=== PATIENT | male | born 1950 | race Caucasian/White ===

== ENCOUNTER → 2023-07-17 07:06 | Outpatient (REF) | payer OTHER, SELFPAY | LOC: DHCBS HW 07:06 | PROVIDERS: ATTENDING PHYSICIAN Nuclear Medicine Nuclear Cardiology; FAMILY PHYSICIAN Internal Medicine | DX: R06.02 Shortness of breath (principal); R94.31 Abnormal electrocardiogram [ECG] [EKG]; I10 Essential (primary) hypertension; Z82.49 Family history of ischemic heart disease and other diseases of the circulatory system | CPT/HCPCS: 93306 ==

== ENCOUNTER 2023-07-21 20:15 | Inpatient (IN) | payer OTHER, SELFPAY ==
[2023-07-21] VITALS (9 sets, daily range): BP systolic 133–162; BP diastolic 72–88; BMI 26.7; BMI 26.2
--- NOTE | 2023-07-21 17:40 | ED.GENMED ---
History of Present Illness
General
Chief Complaint: Breathing Problem
Source: patient
Exam Limitations: none
Time Seen by Provider: 07/21/23 17:24
Nursing documentation reviewed up to this point in time: agreed with
Travel History
Have you had any contact with someone who has COVID-19?: No
Do you have any symptoms of coronavirus? Fever > 100 degrees, chills, cough, shortness of breath, sore throat, loss of taste or smell, muscle aches, or headache?: Yes
Symptoms:: SOB
History of Present Illness
History of Present Illness:
Patient presents to ED for evaluation secondary to an abnormal stress test performed as an outpatient this morning. Patient was advised by sales recruitment specialist, Dr. DIONNE Merritt, to come to ED for an evaluation and admission for likely cardiac catheterization
tomorrow. Patient states that he has had ongoing chronic shortness of breath, which has worsened over the past 1 month, which necessitated echocardiogram last week and stress test this morning. Denies chest pain. Denies dizziness. Denies nausea
or vomiting. Patient states that his shortness of breath can be present when sitting or during ambulation. Denies recent illness. Denies recent change in medications or diet. Denies leg pain or swelling. Denies back pain. Denies recent travel
or surgery.
Past History
Past History
ED Past Medical History: COPD and HTN
ED Past Surgical History: Orthopedic and Urological (Prostatectomy)
Social History
Tobacco: Non-smoker
Alcohol: Occasional
Personal:
Living: with family
Review of Systems
Review of Systems
Allergies reviewed?: Yes
All Other Systems: ROS reviewed and negative except as documented in HPI and ROS
Constitutional: Reports no symptoms
EENT: Reports no symptoms
Respiratory: Reports trouble breathing
Cardiac: Reports no symptoms
ABD/GI: Reports no symptoms
: Reports no symptoms
Musculoskeletal: Reports edema
Skin: Reports no symptoms
Neurological: Reports no symptoms
Phy Exam
Physical Exam
Physical Exam:
Physical Exam
General: no apparent distress, not acutely ill
Neck: supple. no meningeal signs.
Heart: s1/s2 regular rate and rhythm, no murmur. equal radial pulses.
Lungs: no acute respiratory distress. clear bilaterally
Abdomen: normal bowel sounds. not tender.
Neuro: alert and oriented. no focal neurological deficits
Skin: no rash
Psychiatric: well kept. interactive and cooperative
Extremities: no edema. no calf tenderness.
Scores
Heart Failure Risk
Heart Failure Risk Score: Not Applicable
Course
Orders/Labs/Results
Orders:
Orders
07/21/23 17:17
Electrocardiogram (*1) Urgent
Reason for Study: Chest Pain
07/21/23 17:24
CR Chest Portable - 1 View Urgent
Comment:
Reason For Exam: sob
Reason Study Needs to be Portable: Patient Unstable
07/21/23 17:52
Complete Blood Count/With Diff Urgent
Comprehensive Metabolic Panel Urgent
Magnesium Urgent
NT-proBNP Urgent
Prothrombin Time Urgent
Troponin I Urgent
07/21/23 18:52
Aspirin Chewable [Low Strength Aspirin] 324 mg PO NOW STA
Nursing to Place Non Medication Order As Directed
Physician Order: PTT 6 hours after initial start of Heparin infusion
Above order entered?: Yes
07/21/23 19:00
Heparin 60323 Units/250 ml 25,000 units in 250 ml IV PER PROTOCOL
Weight to be used for heparin protocol in kilograms (kg):: 75
Protocol:: Cardiac Tx/Acute Coronary
PTT Goal Range to be used:: PTT 73 to 111 seconds
Order type:: Initial
INITIAL Infusion Dose (UNITS/KG/hr) & then follow protocol:: 12 units/kg/hr
Infusion Dose in UNITS/hr & then follow protocol (UNITS/hr):: 900
INFUSION RATE in mL/hr & then follow protocol (mL/hr):: 9
PTT less than or equal to 64 seconds:: Increase rate by 200 units/hr (+ 2 mL/hr)
PTT 64.1 to 72.9 seconds:: Increase rate by 100 units/hr (+ 1 mL/hr)
PTT 73 to 111 seconds:: Target Range. No change in rate.
PTT 111.1 to 130.9 seconds:: Decrease rate by 100 units/hr (- 1 mL/hr)
PTT 131 to 199.9 seconds:: HOLD for 1 hr. Then decrease rate by 200 units/hr (- 2 mL/hr)
PTT greater than or equal to 200 seconds:: HOLD for 2 hrs & Notify Provider. Then decrease by 200 units/hr (-
2 mL/hr)
Lab follow-up:: Each change, PTT q6h until 2 consecutive are therapeutic. Then PTT
daily.
07/21/23 19:08
PTT Urgent
Comment: Obtain baseline before beginning heparin infusion if not already collected
07/21/23 19:33
Admit/Transfer Patient As Directed
Co-Sign Provider:
Level of Care: Inpatient admission
Assign to:: IVU
Physician / Group: freddy marrufo
Diagnosis: progressive sob concern CAD
Reason for Hospitalization: progressive sob concern CAD
Expected length of stay greater than two midnights?: Yes
ELOS- Estimated Length of Stay in days: 4
I certify the patient meets the requirements for IP care: Yes
07/21/23 19:34
Code Status As Directed
Resuscitation Status: Full Code
07/21/23 22:32
Amlodipine [Norvasc] 10 mg PO HS
Famotidine [Pepcid] 20 mg PO HS
07/21/23 22:32
VTE Contraindication Routine
VTE Mechanical Device Contraindication: Medical Contraindication
Pharmocologic Contraindication: Medical Contraindication
Comment: pt on iv heparin gtt
Activity As Directed
Activity Level: As Tolerated
Vital Signs As Directed
Frequency: Per unit guidelines
Ot Eval And Treat Routine
Pt Eval And Treat Routine
Activity Level: As Tolerated
07/22/23 Breakfast
NPO
Allow oral meds: Yes
Allow clear liquids: No
NPO with Ice Chips: No
Basic Metabolic Panel IN AM
Cardiovascular Evaluation IN AM
Complete Blood Count/With Diff IN AM
07/23/23 06:00
Basic Metabolic Panel IN AM
Complete Blood Count/With Diff IN AM
07/24/23 06:00
Basic Metabolic Panel IN AM
Complete Blood Count/With Diff IN AM
Abnormal Lab Results
07/21/23
17:52
RBC 4.52 L 10^6/uL
(4.70-6.10)
MCH 33.6 H pg
(27.0-31.0)
Absolute Lymphs (auto) 1.0 L 10^3/uL
(1.2-3.4)
Lymphocytes % 18.1 L %
(20.5-51.1)
BUN 27 H mg/dl
(9-20)
Creatinine 1.4 H mg/dL
(0.7-1.3)
Glucose 101 H mg/dl
(70-99)
Magnesium 2.5 H mg/dl
(1.6-2.3)
07/21/23 17:52
07/21/23 17:52
Vital Signs
Initial and Last Documented VS:
Initial Vital Signs
Temp Pulse Resp BP Pulse Ox
97.7 F 94 18 159/88 98
07/21/23 17:14 07/21/23 17:14 07/21/23 17:14 07/21/23 17:14 07/21/23 17:14
Last Documented Vital Signs
Temp Pulse Resp BP Pulse Ox
97.7 F 71 18 159/88 98
07/21/23 22:49 07/21/23 22:53 07/21/23 22:49 07/21/23 22:53 07/21/23 23:03
MDM/Problems Addressed
MDM/Problems Addressed:
Discussed with cardiology () - requests admission on heparin protocol. Cardiac CATH tomorrow.
*EKG
Interpreted by ED Provider?: Yes
EKG Intrepretation Date: 07/21/23
Heart Rate: 80
Rate: normal
Rhythm: sinus
Diamond: left axis deviation
Interval: normal interval
QRS Pattern: normal QRS
*Critical Care Note
Total Time (30-74mins, 75-104mins- exclusive of procedures): Not Applicable
ED Attending Note
-
Portions of this chart may have been created with voice recognition software.� Occasional wrong word or��sound alike� substitutions may have occurred due to the inherent limitations of voice recognition software.
Discharge Plan
Departure
Patient Disposition: Admit
Date of Disposition: 07/21/23
Time of Disposition: 19:08
Admit to: Telemetry
Presentation/result/management discussed w/ accepting MD/DO:
Discharge Problem:
Dyspnea, Abnormal cardiovascular stress test
Interventions
Interventions:
*Risk Screen - Suicide Last Done: 07/21/23 17:14
*General Assessment Last Done: 07/21/23 17:14
*Neglect/Abuse Screening Last Done: 07/21/23 17:14
ED- Fall Risk Assessment Last Done: 07/21/23 17:41
*ED COVID-19 Vaccine History Last Done: 07/21/23 17:18
*Nursing Disposition Last Done: 07/21/23 23:01
ED- Cardiac Assessment Last Done: 07/21/23 17:41
ED- Pulmonary Assessment Last Done: 07/21/23 17:41
Discharge Date and Time
Discharge Date/Time: 07/21/23 23:02
[2023-07-21 18:13] LABS: % Basophils 0.2 % (0-2); % Eosinophils 2.5 % (0-6); % Immature Granulocytes 0.2 % (0-0.5); % Lymphocytes 18.1 % (20.5-51.1); % Monocytes 9.3 % (1.7-9.3); % Neutrophils 69.7 % (42.2-75.2); Absolute Eosinophils 0.1 10^3/uL (0-0.7); Absolute Monocytes 0.5 10^3/uL (0.1-0.6); Absolute Neutrophils 3.8 10^3/uL (1.4-6.5); Hemoglobin 15.2 g/dL (13.0-18.0); Mean Corp Hgb Conc. 36.2 g/dL (33.0-37.0); Mean Corpuscular Hgb 33.6 pg (27.0-31.0); Mean Corpuscular Volume 92.9 fL (80.0-94.0); Mean Platelet Volume 9.6 fL (7.4-10.4); Nucleated Red Blood Cells % 0 % (-); Platelet Count 246 10^3/uL (130-400); Red Blood Cell Count 4.52 10^6/uL (4.70-6.10); Red Cell Dist. Width 12.3 % (11.5-14.5); White Blood Cell Count 5.5 10^3/uL (4.8-10.8)
[2023-07-21 18:21] LABS: INR 1.11; PT 14.1 Sec (11.4-14.6)
[2023-07-21 18:24] LABS: ALT (SGPT) 23 U/L (0-50); AST (SGOT) 31 U/L (17-59); Albumin 4.4 g/dl (3.5-5.0); Alkaline Phosphatase 59 U/L (38-126); Blood Urea Nitrogen 27 mg/dl (9-20); Calcium 9.7 mg/dl (8.4-10.2); Carbon Dioxide 24 mmol/L (22-30); Chloride 103 mmol/L (98-107); Glucose 101 mg/dl (70-99); Magnesium 2.5 mg/dl (1.6-2.3); Potassium 3.7 mmol/L (3.5-5.1); Sodium 141 mmol/L (135-145); Total Bilirubin 0.7 mg/dl (0.2-1.3); Total Protein 7.4 g/dl (6.3-8.2); eGFR 52.41
[2023-07-21 18:34] LABS: NT-proBNP 449 pg/ml; Troponin I 0.031 ng/ml
[2023-07-21] MEDS: LOW STRENGTH ASPIRIN 324 MG PO (18:58)
--- NOTE | 2023-07-21 19:13 | HPS.HSE ---
Addendum entered and electronically signed by Gianluca Vital DO 07/23/23 13:29:
H&P reviewed written by in-house service FINAL CANOE INSPECTOR. Full H&P written by [facility] team in AM of 07/22/2023.
Original Note:
Family Physician
-
Family Physician: Lora Harris
Chief Complaint
-
Shortness of breath, abnormal stress test
History of Present Illness
73-year-old male sent in by his shadow graph weight operator for abnormal stress test performed as outpatient this morning. He is due to have cardiac catheterization in the a.m. He reported ongoing shortness of breath which worsened over t the past month but has
had it since February. He reports feeling dizzy when he gets up. He also states he was symptomatic when shoveling snow several weeks ago. He had outpatient echo and stress test this a.m. 07/21/2023. He denies fever, chills, headache, dizziness,
chest pain, palpitations, cough, abdominal pain, nausea, vomiting, diarrhea, urinary symptoms. He has past medical history of COPD, HTN, prostatectomy/prostate cancer, CKD stage III, OA left knee, COVID-19 infection 08/05/2020 received antibody
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
Medical History
Past Medical History
Past Medical History: Reports Other
Additional Past Medical History:
COPD
HTN
CKD stage III
prostatectomy/prostate cance
OA left knee
COVID-19 infection 08/05/2020 received antibody infusion.
Past Surgical History: Reports Other (Prostatectomy secondary to prostate cancer, left knee replacement)
Social History
Tobacco: Former Smoker (15 years 1 pack a week)
Alcohol: None
Drug: None
Personal: Single
Living: Alone
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
Family History
Family History: CAD (Father age 52 mother CAD, late 70s)
Allergies / Home Medications
Allergies reflects when Allergies were last updated in [facility].
Home Medications with original date entered in [facility]
Allergy/Medication List:
Medications on admission are unable to be verified or confirmed at this time.
Review of Systems
-
History Source: Patient
A 12 point ROS was completed and negative except as noted: Yes
Constitutional: Denies Fever or Chills
EENT: Denies Sore Throat or Runny Nose
Respiratory: Reports Trouble Breathing (GAYTAN); Denies Cough
Cardiac: Denies Chest Pain, Diaphoresis, Palpitations or Syncope
Abdomen/GI: Denies Abdominal Pain, Nausea, Vomiting, Diarrhea, Constipated, Bloody Stools or Black Stools
: Denies Dysuria, Frequency or Flank Pain
Musculoskeletal: Denies Joint Pain or Edema
Skin: Denies Itching
Neurological: Denies Dizzy, Headache or Weakness
Endocrine: Reports No Symptoms
Hematologic/Lymphatic: Reports No Symptoms
Psych: Reports Calm
Physical Exam
Vital Signs
Vital Signs
Temp Pulse Resp BP Pulse Ox
97.7 F 74 12 146/86 96
07/21/23 17:14 07/21/23 19:00 07/21/23 19:00 07/21/23 19:00 07/21/23 18:30
Physical Exam
General: No Apparent Distress, Comfortable and Conversant; No Pain, Fever or Chills
HEENT: NormoCephalic, Anicteric, Moist mucous membranes, PERRLA and No Ptosis
Respiratory: Decreased Breath Sounds and Other (Pursed lip breathing at rest)
Cardiac: S1/S2 and Regular Rhythm; No Murmur, Rub, Gallop or Peripheral Edema
Breast: Deferred by me
GI: Soft, Non Tender, Non Distended, Normal Bowel Sounds and No Hepatosplenomegaly
Genito-urinary: Deferred by me
Musculoskeletal: No Clubbing, No Cyanosis and No Edema
Skin: Warm, Dry and Rash
Neuro: AO x 3, No Motor Deficits, Nonfocal/grossly intact and No Sensory Deficits; No Slurred Speech or Facial Droop
Psych: Calm
Laboratory Results
-
07/21/23 17:52
07/21/23 17:52
Laboratory Results
PT 14.1 Sec (11.4-14.6) 07/21/23 17:52
INR 1.11 07/21/23 17:52
Total Bilirubin 0.7 mg/dl (0.2-1.3) 07/21/23 17:52
AST 31 U/L (17-59) 07/21/23 17:52
ALT 23 U/L (0-50) 07/21/23 17:52
Alkaline Phosphatase 59 U/L (38-126) 07/21/23 17:52
Troponin I 0.031 ng/ml 07/21/23 17:52
Impression/Plan
-
Impression/plan:
Admit to IVU under cardiology service Dr Cruz
# Progressive Shortness of breath with abnormal stress test concern for stable CAD
98% RA
-N.p.o. after midnight for cardiac cath in a.m.
-Consult [facility] cardiology
-IV heparin drip
-Troponin 0.031
CXR: No acute cardiopulmonary abnormality
#HTN�benign
159/88
#COPD chronic�no acute exacerbation
#CKD 3B
Creat 1.4 baseline 1.6
-Follow BMP
#OA left knee with left knee replacement
#Prostate cancer with prostatectomy
#COVID-19 infection July 2020 with antibody infusion
DVT prophylaxis
IV heparin gtt
Full code
[2023-07-21] MEDS: HEPARIN 25000 UNITS/250 ML IV (19:34)
[2023-07-21 19:36] LABS: APTT 34.1 Sec (23.4-35.0)
[2023-07-21] MEDS: PEPCID 20 MG PO (22:53)
[2023-07-21] MEDS: NORVASC 10 MG PO (22:53)
--- NOTE | 2023-07-21 23:00 | PTCARENOTE ---
received patient from the ED. AAOx3. WALES. ambulated with a standby assist, steady on his feet/independent. denies any cp. c/o shortness of breath at rest and exertion. pursed lip breathing noted. 98% on RA. lungs clear throughout. SR on tele
60s-70s. heparin gtt infusing at 9 ml/hr. reviewed plan of care with patient and verbalized understanding. NPO at midnight for a cardiac cath tomorrow. call esquivel within reach. answered all questions.
[2023-07-22] VITALS (16 sets, daily range): BP systolic 93–133; BP diastolic 49–77; BMI 25.7
[2023-07-22 02:25] LABS: % Basophils 0.2 % (0-2); % Immature Granulocytes 0.2 % (0-0.5); % Lymphocytes 28.8 % (20.5-51.1); % Monocytes 9.3 % (1.7-9.3); % Neutrophils 58.5 % (42.2-75.2); Absolute Eosinophils 0.2 10^3/uL (0-0.7); Absolute Lymphocytes 1.9 10^3/uL (1.2-3.4); Absolute Monocytes 0.6 10^3/uL (0.1-0.6); Absolute Neutrophils 3.8 10^3/uL (1.4-6.5); Hematocrit 40.7 % (39.0-52.0); Hemoglobin 14.8 g/dL (13.0-18.0); Mean Corp Hgb Conc. 36.4 g/dL (33.0-37.0); Mean Corpuscular Hgb 34.3 pg (27.0-31.0); Mean Corpuscular Volume 94.2 fL (80.0-94.0); Mean Platelet Volume 9.6 fL (7.4-10.4); Nucleated Red Blood Cells % 0 % (-); Platelet Count 225 10^3/uL (130-400); Red Blood Cell Count 4.32 10^6/uL (4.70-6.10); Red Cell Dist. Width 12.2 % (11.5-14.5); White Blood Cell Count 6.4 10^3/uL (4.8-10.8)
[2023-07-22 02:35] LABS: APTT 78.5 Sec (23.4-35.0)
[2023-07-22 02:38] LABS: Blood Urea Nitrogen 25 mg/dl (9-20); Calcium 9.4 mg/dl (8.4-10.2); Carbon Dioxide 24 mmol/L (22-30); Chloride 103 mmol/L (98-107); Estimated Creatinine Clearance 41 ml/min; Glucose 94 mg/dl (70-99); HDL Cholesterol 44 mg/dl; LDL Cholesterol, Calculated 88 mg/dl; Potassium 3.7 mmol/L (3.5-5.1); Sodium 140 mmol/L (135-145); Total Cholesterol 147 mg/dl (50-199); Triglyceride 78 mg/dl (10-149); Very Low Density Lipoprotein 15 mg/dl (0-30); eGFR 52.41
--- NOTE | 2023-07-22 08:02 | ITS.CL.CATH ---
Supervisor Plate Pasting - Catheterization
Cardiac Catheterization
Procedure Report:
LEFT HEART CATHETERIZATION
Date of Procedure: July 22, 2023
Referring: Ren Merritt
PROCEDURES:
1. Left heart catheterization, coronary angiogram.
2. Ultrasound-guided access
3. Successful percutaneous coronary artery intervention of a 99% mid LAD stenosis (ALEJANDRO I flow) with a 2.75 x 22 mm Medtronic resolute Jayson drug-eluting stent, successfully postdilated using a 2.75 x 20 mm NC trek balloon at 20 daisy with an
excellent angiographic result.
INDICATION: Mr. Gomez is a 73-year-old gentleman with past medical history of hypertension, hyperlipidemia, former tobacco abuse, quit 25 years ago, COPD, not on home oxygen, prostate cancer status post prostatectomy, now in remission, family
history of premature coronary artery disease with his dad having an SD at the age of 53, chronic kidney disease stage IIIb with baseline creatinine of 1.6 who has been having progressive dyspnea on exertion now presents after an abnormal stress test
for a left heart catheterization and coronary angiogram to rule out obstructive CAD. His echocardiogram on July 17, 2023 showed normal biventricular function with mild to moderate aortic stenosis. Initial troponin was 0.031. No rest or
exertional chest discomfort.
ACCESS: Right radial artery, 6 Filipino sheath, under ultrasound guidance.
HEMODYNAMICS : (mmHg)
AO (s/d) : 102/63
LV (s/d) : 103/6
LVEDP : 12
CORONARY FINDINGS
DOMINANCE: Right
LEFT MAIN: The left main artery is a large-caliber vessel which gives rise to the left anterior descending artery and the left circumflex artery. There is 10 to 20% ostial left main stenosis.
LEFT ANTERIOR DESCENDING: The left into descending artery is a large-caliber vessel which gives rise to 3 major diagonal branches which are small to medium in caliber as it courses through the anterior interventricular groove and wraps around the
apex. There is a calcified hazy 99% mid LAD stenosis with ALEJANDRO I flow. This lesion is thought to be the culprit for patient's presenting symptoms and abnormal stress test.
CIRCUMFLEX: The left circumflex artery is a large-caliber vessel which gives rise to 2 major obtuse marginal branches. There is minimal luminal irregularities.
RIGHT CORONARY ARTERY: The right coronary artery is a large-caliber, dominant vessel which gives rise to the right posterior descending artery and the right posterolateral system. There is a long area of tubular 40% mid RCA stenosis. There is very
faint left to right collaterals.
CORONARY INTERVENTION: We decided to proceed intervention on the flow-limiting high-grade mid LAD stenosis. The left coronary artery was selectively engaged using a 6 Filipino EBU 3.5 guide catheter. Additional heparin was given to maintain a
therapeutic ACT throughout the case. We navigated the lesion using a 190cm 0.014' BMW coronary wire which was successfully parked in the distal LAD. The lesion was predilated using a 2.0 x 15 mm trek semicompliant balloon at 14 daisy with good
expansion. The lesion was then subsequently stented using a 2.75 x 22 mm Medtronic resolute Maynard drug-eluting stent and postdilated using a 2.75 x 20 mm NC trek balloon at 20 daisy with an excellent angiographic result. 0% residual stenosis was
noted. ALEJANDRO-3 flow into the apical LAD was restored. Patient tolerated the procedure well with no acute complications. He was loaded with 600 mg of Plavix at the end of the case.
SEDATION: 72 minutes of procedural sedation was utilized. An independent biomedical specialist was present to assist with and help manage the patient's level of consciousness and physiologic status.
RADIATION SUMMARY: Fluoro Time (min): 9.1, Dose (mGy): 853.6, DAP (Gy.cm2) : 69.1
Closure Device: Vascular band over right radial artery, 12 cc of air.
CONCLUSIONS
1. Successful percutaneous coronary artery intervention of a 99% mid LAD stenosis (ALEJANDRO I flow) with a 2.75 x 22 mm Medtronic resolute Jayson drug-eluting stent, successfully postdilated using a 2.75 x 20 mm NC trek balloon at 20 daisy with an
excellent angiographic result.
2. Non-obstructive coronary artery disease otherwise.
3. Normal LVEDP
RECOMMENDATIONS
1. Uninterrupted dual antiplatelet therapy with daily baby aspirin and Plavix 75 mg along with high intensity statin and beta-esme.
2. Aggressive management of his cardiovascular risk factors.
3. Wean radial band per protocol.
4. Referral for outpatient cardiac rehab.
Copy to: Hero Galvez, Ren Merritt
Rika Samuel MD, FACC, [facility]
--- NOTE | 2023-07-22 08:29 | CON.CAR ---
Addendum entered and electronically signed by Rika Samuel MD 07/22/23 09:20:
I saw and examined the patient.
The Director Of Hotel's note was reviewed and I agree with the note.
Comment: Mr. Gomez is a 73-year-old gentleman with past medical history of hypertension, hyperlipidemia, former tobacco abuse, quit 25 years ago, COPD, not on home oxygen, prostate cancer status post prostatectomy, now in remission, family
history of premature coronary artery disease with his dad having an LA at the age of 53, chronic kidney disease stage IIIb with baseline creatinine of 1.6 who has been having progressive dyspnea on exertion now presents after an abnormal stress test
for a left heart catheterization and coronary angiogram to rule out obstructive CAD. His echocardiogram on July 17, 2023 showed normal biventricular function with mild to moderate aortic stenosis. Initial troponin was 0.031.
Exam is notable for a gentleman in no acute distress, awake, alert and oriented x 3, regular rate, normal S1 and S2, mid peaking systolic ejection murmur at the right upper sternal border, lungs are clear to auscultation, abdomen is soft, nontender,
nondistended with active bowel sounds, warm extremities without significant edema.
Lab work reviewed as noted. Vital signs reviewed.
Recommendations
1. Treating for presumed unstable angina with IV heparin, aspirin, and high intensity statin and beta-esme.. Will trend troponins.
2. Detailed informed consent completed with plan for heart catheterization later today to rule out obstructive CAD.
3. Recent echocardiogram showing normal biventricular function with mild to moderate aortic stenosis.
4. Further recommendations based on results from the heart catheterization.
Rika Samuel MD, [facility], [facility]
2.
Original Note:
Consultation
Consultation Request
Date/Time Consultation Requested: 07/21/2023
Date/Time Consultation Performed: 07/22/2023
Performing Provider: Perla Young PA-C for Dr. Samuel
Reason for Consultation: shortness of breath, abnormal stress test
Medical History
-
History of Present Illness:
This serves as Admission History and physical
Patient is a 73-year-old male with past medical history significant for hypertension, hyperlipidemia, CKD, prostate cancer status post prostatectomy and family history of premature coronary artery disease who was seen in the outpatient cardiology
office in mid June 2023 with complaints of progressively worsening dyspnea on exertion. Patient complained of dyspnea with moderate activity including shoveling snow which required him to stop several times during most recent storm. Over the
last several weeks he has been unable to walk up 5 or 6 steps in his house without having shortness of breath at the top. He denies chest pain. He was seen by Dr. Barba on 07/01/2023 and referred for an echocardiogram and stress test. He
underwent echocardiogram on 07/17/2023 which demonstrated ejection fraction of 55 to 60% with mild to moderate aortic regurgitation. He had a Lexiscan nuclear stress test on 07/21/2023 which was abnormal with concern for ischemia in anterior region
suggestive of LAD disease. He was referred to the emergency department given his symptoms and these findings. In emergency department EKG showed sinus rhythm with anterior T wave abnormality and anterior infarct age indeterminate. Troponin 0.031.
Chest x-ray with no acute abnormality. Provided aspirin 325 mg and placed on heparin gtt.
At the time of this evaluation patient denies chest pain or shortness of breath at rest. He denies palpitations, dizziness, lightheadedness, syncope, edema, orthopnea or PND.
Past medical history:
Hypertension
Hyperlipidemia
Chronic kidney disease
Family history of premature coronary artery disease
Benign positional vertigo
Prostate cancer status post prostatectomy 2002
Total left knee replacement 2019
Past Medical History
Past Medical History: Other (see HPI)
Past Surgical History: Orthopedic (Total left knee replacement 2019 ) and Urological (prostatectomy 2002)
Social History
Tobacco: Former Smoker (Quit around 1998)
Alcohol: Occasional (1 cocktail daily)
Drug: None
Personal: Single ( but has girlfriend)
Living: Other (Lives with girlfriend)
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
Family History
Family History: Early CAD (Father had LA at 54), CAD (Mother CAD in 70s) and Hypertension
Allergies / Home Medications
Allergy/AdvReac Type Severity Reaction Status Date / Time
No Known Allergies Allergy Verified 07/21/23 17:14
Medication Instructions Recorded Confirmed Type
ascorbic acid (vitamin C) 1,000 mg 1,000 mg PO DAILY Supplement 11/15/19 07/21/23 History
tablet (Vitamin C)
Allergy Relief 25 mg PO HS 07/21/23 07/21/23 History
acetaminophen 500 mg tablet 1,000 mg PO DAILYPRN PRN mild pain 07/21/23 07/21/23 History
(Tylenol Extra Strength)
aspirin 81 mg tablet,delayed 81 mg PO HS 07/21/23 07/21/23 History
release
fluticasone propionate 50 2 spray intranasal DAILY PRN sob 07/21/23 07/21/23 History
mcg/actuation nasal
spray,suspension
hydralazine 25 mg tablet 25 mg PO BID 07/21/23 07/21/23 History
hydrochlorothiazide 25 mg tablet 25 mg PO DAILY 07/21/23 07/21/23 History
snluemiibmgi-agflqrcf-pqooly tablet 1 tab PO DAILY 07/21/23 07/21/23 History
triamcinolone acetonide 0.1 % 1 applic topical DAILY PRN eczema 07/21/23 07/21/23 History
topical cream
turmeric root extract 500 mg 500 mg PO DAILY 07/21/23 07/21/23 History
capsule
Review of Systems
-
History Source: Patient
All other systems: Negative unless noted
Physical Exam
Vital Signs
Temp Pulse Resp BP Pulse Ox
97.4 F 105 16 131/75 97
07/22/23 07:57 07/22/23 07:52 07/22/23 07:57 07/22/23 07:30 07/22/23 08:00
GEN: No distress, awake, Ox3
HEENT: supple, anicteric, mmm
LUNGS: CTA, no wheezes/rales
CV: Reg, S1/S2, no murmur, rub or gallop
ABD: soft, BS+, NT/ND
EXT: No edema, clubbing or cyanosis
NEURO: Gross non-focal
SKIN: No rash, warm, dry, pink
Lab Results
07/22/23 01:44
07/22/23 01:44
Troponin I 0.031 ng/ml 07/21/23 17:52
Tub-P-Lxzkfrhmyid Pept 449 pg/ml 07/21/23 17:52
Impression / Plan
-
PCP: Lora Harris
Weight Clerk Dr. Hero Galvez
Impression:
Presented 07/21/2023 with progressively worsening dyspnea on exertion
Abnormal outpatient stress test suggestive of ischemia
Hypertension
Hyperlipidemia
Chronic kidney disease 3A
Family history of premature coronary artery disease
Benign positional vertigo
Prostate cancer status post prostatectomy 2002
Total left knee replacement 2019
Echocardiogram 07/17/2023: EF 55 to 60%, mild to moderate AI.
Lexiscan nuclear stress test 07/21/2023: Preliminary report suggests anterior, anterior lateral ischemia suggestive of LAD disease. Official report pending
Cardiac catheterization 07/22/2023: Pending
Plan:
Patient is a 73-year-old male with past medical history significant for hypertension, hyperlipidemia, CKD, prostate cancer status post prostatectomy and family history of premature coronary artery disease who was seen in the outpatient cardiology
office in mid June 2023 with complaints of progressively worsening dyspnea on exertion. Patient complained of dyspnea with moderate activity including shoveling snow which required him to stop several times during most recent storm. Over the
last several weeks he has been unable to walk up 5 or 6 steps in his house without having shortness of breath at the top. He denies chest pain. He was seen by Dr. Galvez on 07/01/2023 and referred for an echocardiogram and stress test. He underwent
echocardiogram on 07/17/2023 which demonstrated ejection fraction of 55 to 60% with mild to moderate aortic regurgitation. He had a Lexiscan nuclear stress test on 07/21/2023 which was abnormal with concern for ischemia in anterior region suggestive of
LAD disease. He was referred to the emergency department given his symptoms and these findings. In emergency department EKG showed sinus rhythm with anterior T wave abnormality and anterior infarct age indeterminate. Troponin 0.031. Chest x-ray
with no acute abnormality. Provided aspirin 325 mg in ED and placed on heparin gtt.
At the time of this evaluation patient denies chest pain or shortness of breath at rest. He denies palpitations, dizziness, lightheadedness, syncope, edema, orthopnea or PND.
-Presented 07/21/2023 with progressively worsening dyspnea on exertion and underwent outpatient Echocardiogram 07/17/23 which showed preserved ejection fraction with mild to moderate AI. Preliminary results of Lexiscan nuclear stress test performed
07/21/2023 suggest LAD ischemia.
-Initial troponin 0.031, repeat pending
-Will proceed with cardiac catheterization 07/22/2023. Continue heparin drip.
-Keep n.p.o.
-Aspirin 325 mg given in emergency department. Continue 81 mg daily.
-Will add Toprol 25 mg.
-History of hypertension on hydrochlorothiazide 25 mg and hydralazine 25 mg p.o. twice daily as outpatient. Started on Norvasc in ED and holding HCTZ given CKD.
-Hyperlipidemia not on statin therapy prior to admission. Pre-statin lipids 07/22/2022 TC 147, HDL 44, LDL 88, triglycerides 78. Will add atorvastatin 40 mg daily.
-Hemoglobin A1c 06/18/2023 5.4%.
-CKD 3A, baseline creat 1.4-1.6.
Plan was discussed in detail with patient, Dr. Samuel, nursing.
Data Reviewed
-
EKG: Report Reviewed by me, Discussed with Physician, Discussed with Nurse and Discussed with Patient
Radiology: Report Reviewed by me, Discussed with Physician, Discussed with Nurse and Discussed with Patient
Medical Tests (Nuc Med, Echo etc): Report Reviewed by me, Discussed with Physician, Discussed with Nurse and Discussed with Patient
Labs: Labs Reviewed by me, Discussed with Physician, Discussed with Nurse and Discussed with Patient
[2023-07-22] MEDS: TOPROL XL 25 MG PO (08:48)
[2023-07-22] MEDS: LOW STRENGTH ASPIRIN 81 MG PO (08:49)
[2023-07-22 08:52] LABS: APTT 79.6 Sec (23.4-35.0)
[2023-07-22 09:29] LABS: Troponin I 0.014 ng/ml
[2023-07-22 10:08] LABS: ACT-LR - POC 231 Seconds (116-155)
--- NOTE | 2023-07-22 10:11 | CM ---
spoke to pt/s.o. in room, pt is prev indep, lives with his S.O. in a split level home with 6 steps to enter. he denies any dme's or dc planning needs. plan is for dc to home when medically stable.
[2023-07-22 10:18] LABS: ACT-LR - POC 322 Seconds (116-155)
[2023-07-22 10:39] LABS: ACT-LR - POC 287 Seconds (116-155)
[2023-07-22] MEDS: NSS 1000 IV (11:11)
[2023-07-22] MEDS: LIPITOR 40 MG PO (17:18)
--- NOTE | 2023-07-22 19:07 | PTCARENOTE ---
Pt received post cath at 1100. Right rad site WNL. TR band removed by 1430. Pt ambulating ad mely in the room and hallway. Denies any chest pain or sob at rest. Mild dyspnea with exertion.
--- NOTE | 2023-07-22 20:46 | PTCARENOTE ---
assumed care of patient at the change of shift. AAOx3. ambulating in the room independently. patient states breathing is much improved. mild dyspnea on exertion. SR 60s. bp stable. R radial site, CDI, + pulses. reviewed plan of care with the patient
and verbalized understanding. patient eager to go home. call esquivel within reach.
[2023-07-22] MEDS: NORVASC PO (22:19)
[2023-07-22] MEDS: PEPCID 20 MG PO (22:20)
[2023-07-23 02:43] VITALS: BP 133/77
[2023-07-23 03:11] LABS: % Basophils 0.3 % (0-2); % Immature Granulocytes 0.3 % (0-0.5); % Lymphocytes 20.2 % (20.5-51.1); % Monocytes 9.2 % (1.7-9.3); Absolute Eosinophils 0.2 10^3/uL (0-0.7); Absolute Lymphocytes 1.2 10^3/uL (1.2-3.4); Absolute Monocytes 0.6 10^3/uL (0.1-0.6); Hematocrit 38.7 % (39.0-52.0); Hemoglobin 14.2 g/dL (13.0-18.0); Mean Corp Hgb Conc. 36.7 g/dL (33.0-37.0); Mean Corpuscular Hgb 33.7 pg (27.0-31.0); Mean Corpuscular Volume 91.9 fL (80.0-94.0); Mean Platelet Volume 9.3 fL (7.4-10.4); Nucleated Red Blood Cells % 0 % (-); Platelet Count 210 10^3/uL (130-400); Red Blood Cell Count 4.21 10^6/uL (4.70-6.10); Red Cell Dist. Width 12.5 % (11.5-14.5)
[2023-07-23 03:35] LABS: Blood Urea Nitrogen 22 mg/dl (9-20); Calcium 9.2 mg/dl (8.4-10.2); Carbon Dioxide 23 mmol/L (22-30); Chloride 106 mmol/L (98-107); Estimated Creatinine Clearance 38 ml/min; Glucose 90 mg/dl (70-99); Sodium 138 mmol/L (135-145); eGFR 48.25
[2023-07-23 07:03] VITALS: BP 130/75
--- NOTE | 2023-07-23 07:46 | W.PN.CARDCBS ---
Addendum entered and electronically signed by Rika Samuel MD 07/23/23 17:10:
I saw and examined the patient.
The Recycling Specialist's note was reviewed and I agree with the note.
Comment: Overall patient is doing well. He underwent LAD PCI yesterday and reports that his dyspnea on exertion as he walked the halls has been better today. No issues at the right radial access site.
Vital signs and lab work reviewed. Hemodynamically stable. No significant events on telemetry. Exam is unchanged from before. Radial site appears dressed with dressing that is clean, dry and intact. 1+ radial pulse without bruit or evidence of
hematoma.
Recommendations:
1. Continue dual antiplatelet therapy with daily baby aspirin and Plavix, high intensity statin along with beta-esme. He will now be on Norvasc. We will hold his home hydralazine and hydrochlorothiazide.
2. Outpatient BMP given elevated creatinine while in the hospital this admission with referral for outpatient nephrology if persist to be elevated.
3. Given his history of COPD with long expiratory phase of breathing on exam, I recommended that he speak to his primary care physician for a referral for pulmonary medicine for consideration of repeat pulmonary function test.
4. Stable for discharge from a cardiac standpoint. Outpatient cardiac rehab referral has been sent.
5. Follow-up with outpatient cardiology.
Rika Samuel MD, [facility], [facility]
Addendum entered and electronically signed by Perla Young PA-C 07/23/23 12:27:
dictated d/c summary #[id number]
Original Note:
Today's Communication / Plan
-
s/p LAD PRINCESS 07/23/2023
DAPT ASA and Plavix
New to Atorvastatin, Toprol and Norvasc
Stop Hydralazine and HCTZ
BMP 10-14 days
Stable for d/c
Impression / Plan
-
PCP: Lora Harris
Hypoid Gear Generator Dr. Hero Galvez
Impression:
Presented 07/21/2023 with progressively worsening dyspnea on exertion
Abnormal outpatient stress test suggestive of ischemia
CAD
s/p 2.75 x 22 mm Medtronic resolute [place] drug-eluting stent with residual 40% mid RCA s
Hypertension
Hyperlipidemia
Chronic kidney disease 3A
Family history of premature coronary artery disease
Benign positional vertigo
Prostate cancer status post prostatectomy 2002
Total left knee replacement 2019
Echocardiogram 07/17/2023: EF 55 to 60%, mild to moderate AI.
Lexiscan nuclear stress test 07/21/2023: Preliminary report suggests anterior, anterior lateral ischemia suggestive of LAD disease. Official report pending
Cardiac catheterization 07/22/2023: LM:10-20% ost. LAD:99% mid LAD stenosis (pre-intervention ALEJANDRO I flow), s/p 2.75 x 22 mm Medtronic resolute [place] PRINCESS. LCX:LI. RCA:long mid tubular 40% stenosis w/ faint left to right collaterals
Plan:
-Presented 07/21/2023 with progressively worsening dyspnea on exertion. Underwent outpatient Echocardiogram 07/17/23 which showed preserved ejection fraction with mild to moderate AI. Preliminary results of Lexiscan nuclear stress test performed
07/21/2023 suggest LAD ischemia.
-Initial troponin 0.031, repeat 0.014
-Cardiac catheterization 07/22/2023 demonstrated 99% mid LAD stenosis (pre-intervention ALEJANDRO I flow), status post with a 2.75 x 22 mm Medtronic resolute [place] drug-eluting stent with residual 40% mid RCA stenosis with we will treat med medical therapy
-DAPT w/ ASA 81 mg daily and Plavix 75 mg daily for at least 6 months.
-New to Toprol 25 mg.
-History of hypertension on hydrochlorothiazide 25 mg and hydralazine 25 mg p.o. twice daily as outpatient prior to admission. Creat running 1.4-1.5. Will stop HCTZ given CKD. Started on Norvasc in ED in place of Hydralazine. Will continue Norvasc,
Toprol. Consider low dose ERROL-I if creat stable as outpt.
-CKD 3A, baseline creat 1.4-1.6. Check BMP in 10-14 days prior to outpt follow up off HCTZ.
-Hyperlipidemia not on statin therapy prior to admission. Pre-statin lipids 07/22/2022 TC 147, HDL 44, LDL 88, triglycerides 78. New to Atorvastatin 40 mg daily.
-Hemoglobin A1c 06/18/2023 5.4%.
-Seen by cardiac rehab
Stable for d/c from cardiology standpoint
Admit HPI:
Patient is a 73-year-old male with past medical history significant for hypertension, hyperlipidemia, CKD, prostate cancer status post prostatectomy and family history of premature coronary artery disease who was seen in the outpatient cardiology
office in mid June 2023 with complaints of progressively worsening dyspnea on exertion. Patient complained of dyspnea with moderate activity including shoveling snow which required him to stop several times during most recent storm. Over the
last several weeks he has been unable to walk up 5 or 6 steps in his house without having shortness of breath at the top. He denies chest pain. He was seen by Dr. Galvez on 07/01/2023 and referred for an echocardiogram and stress test. He underwent
echocardiogram on 07/17/2023 which demonstrated ejection fraction of 55 to 60% with mild to moderate aortic regurgitation. He had a Lexiscan nuclear stress test on 07/21/2023 which was abnormal with concern for ischemia in anterior region suggestive of
LAD disease. He was referred to the emergency department given his symptoms and these findings. In emergency department EKG showed sinus rhythm with anterior T wave abnormality and anterior infarct age indeterminate. Troponin 0.031. Chest x-ray
with no acute abnormality. Provided aspirin 325 mg in ED and placed on heparin gtt.
At the time of this evaluation patient denies chest pain or shortness of breath at rest. He denies palpitations, dizziness, lightheadedness, syncope, edema, orthopnea or PND.
Progress Note - Hypoid Gear Generator
Subjective
Date of Service: July 23, 2023
Patient seen and examined. Patient reports he is feeling well. He has been able to ambulate around the unit with improvement of shortness of breath. Denies chest pain. Eager to go home.
Objective
Labs:
07/23/23 02:48
07/23/23 02:48
Labs
Hgb 14.2 g/dL (13.0-18.0) 07/23/23 02:48
Hct 38.7 % (39.0-52.0) L 07/23/23 02:48
Plt Count 210 10^3/uL (130-400) 07/23/23 02:48
PT 14.1 Sec (11.4-14.6) 07/21/23 17:52
INR 1.11 07/21/23 17:52
APTT 79.6 Sec (23.4-35.0) H 07/22/23 08:22
Sodium 138 mmol/L (135-145) 07/23/23 02:48
Potassium 4.0 mmol/L (3.5-5.1) 07/23/23 02:48
BUN 22 mg/dl (9-20) H 07/23/23 02:48
Creatinine 1.5 mg/dL (0.7-1.3) H 07/23/23 02:48
Glucose 90 mg/dl (70-99) 07/23/23 02:48
Troponins
07/21/23 07/22/23
17:52 08:54
Troponin I 0.031 0.014
Vital Signs and I&O:
Vital Signs
Temp Pulse Resp BP Pulse Ox
97.7 F 70 20 133/77 98
07/23/23 07:01 07/23/23 02:45 07/23/23 07:01 07/23/23 02:43 07/23/23 07:01
Vital Signs
Temp Pulse Resp BP Pulse Ox
97.7 F 70 20 133/77 98
07/23/23 07:01 07/23/23 02:45 07/23/23 07:01 07/23/23 02:43 07/23/23 07:01
Intake & Output
07/21/23 07/22/23 07/23/23 07/24/23
06:59 06:59 06:59 06:59
Intake Total 250 / 250
Balance 250 / 250
Physical Exam
Physical Exam
GEN: No distress, awake, Ox3
HEENT: supple, anicteric, mmm
LUNGS: CTA, no wheezes/rales
CV: Reg, S1/S2, no murmur, rub or gallop
ABD: soft, BS+, NT/ND
EXT: No edema, clubbing or cyanosis; right radial access site C/D/I with minimal ecchymosis
NEURO: Gross non-focal
SKIN: No rash, warm, dry, pink
[2023-07-23] MEDS: TOPROL XL 25 MG PO (08:06)
[2023-07-23] MEDS: LOW STRENGTH ASPIRIN 81 MG PO (08:06)
[2023-07-23] MEDS: PLAVIX 75 MG PO (08:07)
--- NOTE | 2023-07-23 09:59 | PTOTSP ---
Chart reviewed, spoke with nurse. Therapist spoke with the patient, who noted he has been ambulating in the hallway independently and denies issues with balance/mobility. RN confirms the patient has been independent. Patient offered no concerns
regarding mobility upon return home and is agreeable to PT signing off while hospitalized. Please reconsult if needs arise.
--- NOTE | 2023-07-23 10:25 | W.DS.TRANS ---
DC Summary - Trolley Worker
-
Discharge Instructions:
Discharge Diagnosis/Procedures Angioplasty with stent to Left Anterior
Descending artery
Diet Low Cholesterol
Driving Restrictions No driving for 24 hours
Blood Work Basic metabolic panel 10-14 days, prior to
office visit 08/12/2023
Other Services Cardiac Rehab
Stop these medications: Stop Hydralazine and Hydrochlorothiazide
Instructions: Cardiac Catheterization (DC)
Coronary Stenting (DC)
Stand-Alone Forms: DC Instructions- Cath/EP Lab
Changes to Home Medications: Yes
Discharge Medications:
DC Medications w/original date entered in [employer]
ascorbic acid (vitamin C) 1,000 mg tablet (Vitamin C) 1,000 mg PO DAILY Supplement 11/15/19
Allergy Relief 25 mg PO HS 07/21/23
acetaminophen 500 mg tablet (Tylenol Extra Strength) 1,000 mg PO DAILYPRN PRN mild pain 07/21/23
fluticasone propionate 50 mcg/actuation nasal spray,suspension 2 spray intranasal DAILY PRN sob 07/21/23
lqdcojsvjegt-uaghzfnk-uxpxkv tablet 1 tab PO DAILY 07/21/23
triamcinolone acetonide 0.1 % topical cream 1 applic topical DAILY PRN eczema 07/21/23
turmeric root extract 500 mg capsule 500 mg PO DAILY 07/21/23
amlodipine 2.5 mg tablet 2.5 mg PO DAILY Blood pressure #90 tabs 07/23/23
aspirin 81 mg tablet,delayed release 81 mg PO HS Blood clot prevention/tx #0 tabs 07/23/23
atorvastatin 40 mg tablet 40 mg PO QPM #90 tabs 07/23/23
clopidogrel 75 mg tablet 75 mg PO DAILY #90 tabs 07/23/23
metoprolol succinate 25 mg tablet,extended release 24 hr 25 mg PO DAILY #90 tabs 07/23/23
Home Medication Changes
New to Atorvastatin, Toprol and Norvasc
Stop Hydralazine and HCTZ
Pending Results: No
Total time spent discharging patient (in min): 36
--- NOTE | 2023-07-23 10:41 | CM ---
CM following for DC planning needs.
Pt. for DC today, order noted.
Plan is for home, no needs.
--- NOTE | 2023-07-23 11:25 | PTCARENOTE ---
D/C instructions given to patient and significant other, both verbalizes understanding. INT D/C'd, telemetry D/C'd, personal belongings packed and sent home with patient. D/C to home via wc accompanied by vol. services.
== END 2023-07-23 11:30 | disposition home or self-care (01) | DRG 322 ==
LOC: IVU 20:15
PROVIDERS: Clinical Nurse Specialist Family Health; Emergency Medicine; Physician Assistant Medical; ADMITTING PHYSICIAN Internal Medicine Cardiovascular Disease; EMERGENCY PHYSICIAN Emergency Medicine; FAMILY PHYSICIAN Internal Medicine; OTHER PHYSICIAN Internal Medicine Interventional Cardiology
PROC: 4A023N7 Measurement of Cardiac Sampling and Pressure, Left Heart, Percutaneous Approach (ICD-10-PCS; 2023-07-22)
PROC: B2111ZZ Fluoroscopy of Multiple Coronary Arteries using Low Osmolar Contrast (ICD-10-PCS; 2023-07-22)
PROC: 027034Z Dilation of Coronary Artery, One Artery with Drug-eluting Intraluminal Device, Percutaneous Approach (ICD-10-PCS; 2023-07-22)
DX: I25.10 Atherosclerotic heart disease of native coronary artery without angina pectoris (principal); I12.9 Hypertensive chronic kidney disease with stage 1 through stage 4 chronic kidney disease, or unspecified chronic kidney disease; J44.9 Chronic obstructive pulmonary disease, unspecified; M17.12 Unilateral primary osteoarthritis, left knee; E78.5 Hyperlipidemia, unspecified; H81.10 Benign paroxysmal vertigo, unspecified ear; N18.31 Chronic kidney disease, stage 3a; Z87.891 Personal history of nicotine dependence; Z86.16 Personal history of COVID-19; Z96.652 Presence of left artificial knee joint; Z90.79 Acquired absence of other genital organ(s); Z85.46 Personal history of malignant neoplasm of prostate; Z82.49 Family history of ischemic heart disease and other diseases of the circulatory system
CPT/HCPCS: 71045; 76937; 78452; 80048; 80053; 80061; 83735; 83880; 84484; 85025; 85347; 85610; 85730; 93005; 93017; 93458; 99152; 99153; 99285; A9500; C1725; C1769; C1874; C1894; C9600; J2785; Q9967

== ENCOUNTER → 2023-07-25 08:21 | Outpatient (REF) | payer OTHER, SELFPAY ==
[2023-07-25 10:59] LABS: Blood Urea Nitrogen 25 mg/dl (9-20); Carbon Dioxide 23 mmol/L (22-30); Chloride 109 mmol/L (98-107); Glucose 115 mg/dl (70-99); Potassium 4.1 mmol/L (3.5-5.1); Sodium 140 mmol/L (135-145); eGFR 41.52
== END ==
LOC: HWLAB 08:21
PROVIDERS: ATTENDING PHYSICIAN Nuclear Medicine Nuclear Cardiology; FAMILY PHYSICIAN Internal Medicine
DX: N18.31 Chronic kidney disease, stage 3a (principal)
CPT/HCPCS: 36415; 80048

== ENCOUNTER 2023-08-13 08:16 | Outpatient (RCR) | payer OTHER, SELFPAY | END 2023-08-13 23:59 | disposition home or self-care (01) | LOC: CRHB 08:16 | PROVIDERS: ATTENDING PHYSICIAN Internal Medicine Interventional Cardiology | DX: I25.10 Atherosclerotic heart disease of native coronary artery without angina pectoris (principal); Z95.5 Presence of coronary angioplasty implant and graft | CPT/HCPCS: G0422; G0423 ==

== ENCOUNTER 2023-09-10 08:23 | Outpatient (RCR) | payer OTHER, SELFPAY | END 2023-09-10 23:59 | disposition home or self-care (01) | LOC: CRHB 08:23 | PROVIDERS: ATTENDING PHYSICIAN Nuclear Medicine Nuclear Cardiology; FAMILY PHYSICIAN Internal Medicine | DX: Z95.5 Presence of coronary angioplasty implant and graft (principal) | CPT/HCPCS: G0422; G0423 ==

== ENCOUNTER 2023-10-13 08:22 | Outpatient (RCR) | payer OTHER, SELFPAY | END 2023-10-13 23:59 | disposition home or self-care (01) | LOC: CRHB 08:22 | PROVIDERS: ATTENDING PHYSICIAN Nuclear Medicine Nuclear Cardiology; FAMILY PHYSICIAN Internal Medicine | DX: I25.10 Atherosclerotic heart disease of native coronary artery without angina pectoris (principal); Z95.5 Presence of coronary angioplasty implant and graft | CPT/HCPCS: G0422; G0423 ==

== ENCOUNTER 2023-11-12 08:23 | Outpatient (RCR) | payer OTHER, SELFPAY | END 2023-11-12 23:59 | disposition home or self-care (01) | LOC: CRHB 08:23 | PROVIDERS: ATTENDING PHYSICIAN Nuclear Medicine Nuclear Cardiology; FAMILY PHYSICIAN Internal Medicine | DX: I25.10 Atherosclerotic heart disease of native coronary artery without angina pectoris (principal); Z95.5 Presence of coronary angioplasty implant and graft | CPT/HCPCS: G0422; G0423 ==

== ENCOUNTER → 2023-11-20 06:39 | Outpatient (REF) | payer OTHER, SELFPAY ==
[2023-11-20 10:30] LABS: ALT (SGPT) 23 U/L (0-50); AST (SGOT) 25 U/L (17-59); Albumin 4.3 g/dl (3.5-5.0); Alkaline Phosphatase 73 U/L (38-126); Blood Urea Nitrogen 19 mg/dl (9-20); Calcium 9.2 mg/dl (8.4-10.2); Carbon Dioxide 24 mmol/L (22-30); Chloride 109 mmol/L (98-107); Glucose 102 mg/dl (70-99); HDL Cholesterol 46 mg/dl; LDL Cholesterol, Calculated 22 mg/dl; Potassium 4.2 mmol/L (3.5-5.1); Sodium 142 mmol/L (135-145); Total Bilirubin 0.5 mg/dl (0.2-1.3); Total Cholesterol 78 mg/dl (50-199); Triglyceride 50 mg/dl (10-149); Very Low Density Lipoprotein 10 mg/dl (0-30); eGFR 57.29
== END ==
LOC: HWLAB 06:39
PROVIDERS: ATTENDING PHYSICIAN Nuclear Medicine Nuclear Cardiology; FAMILY PHYSICIAN Internal Medicine
DX: E78.5 Hyperlipidemia, unspecified (principal)
CPT/HCPCS: 36415; 80053; 80061

== ENCOUNTER 2023-12-01 08:52 | Outpatient (RCR) | payer OTHER, SELFPAY | END 2023-12-01 23:59 | disposition home or self-care (01) | LOC: CRHB 08:52 | PROVIDERS: ATTENDING PHYSICIAN Nuclear Medicine Nuclear Cardiology; FAMILY PHYSICIAN Internal Medicine | DX: I25.10 Atherosclerotic heart disease of native coronary artery without angina pectoris (principal); Z95.5 Presence of coronary angioplasty implant and graft | CPT/HCPCS: G0422; G0423 ==

== ENCOUNTER → 2024-04-28 09:06 | Outpatient (REF) | payer OTHER, SELFPAY ==
[2024-04-28 12:18] LABS: % Basophils 0.5 % (0-2); % Eosinophils 4.6 % (0-6); % Immature Granulocytes 0.2 % (0-0.5); % Lymphocytes 17.8 % (20.5-51.1); % Monocytes 8.8 % (1.7-9.3); % Neutrophils 68.1 % (42.2-75.2); Absolute Eosinophils 0.3 10^3/uL (0-0.7); Absolute Monocytes 0.5 10^3/uL (0.1-0.6); Absolute Neutrophils 3.9 10^3/uL (1.4-6.5); Hematocrit 41.4 % (39.0-52.0); Hemoglobin 14.3 g/dL (13.0-18.0); Mean Corp Hgb Conc. 34.5 g/dL (33.0-37.0); Mean Corpuscular Hgb 32.6 pg (27.0-31.0); Mean Corpuscular Volume 94.5 fL (80.0-94.0); Mean Platelet Volume 9.3 fL (7.4-10.4); Nucleated Red Blood Cells % 0 % (-); Platelet Count 216 10^3/uL (130-400); Red Blood Cell Count 4.38 10^6/uL (4.70-6.10); Red Cell Dist. Width 12.2 % (11.5-14.5); White Blood Cell Count 5.7 10^3/uL (4.8-10.8)
[2024-04-28 13:01] LABS: PSA, Total - Diagnostic < 0.06 ng/ml (0.0-4.0); TSH Reflex To Free T4 1.14 uIU/ml (0.47-4.68)
[2024-04-28 13:40] LABS: ALT (SGPT) 26 U/L (0-50); AST (SGOT) 27 U/L (17-59); Albumin 4.8 g/dl (3.5-5.0); Alkaline Phosphatase 82 U/L (38-126); Blood Urea Nitrogen 20 mg/dl (9-20); Calcium 9.9 mg/dl (8.4-10.2); Carbon Dioxide 25 mmol/L (22-30); Chloride 105 mmol/L (98-107); Glucose 95 mg/dl (70-99); HDL Cholesterol 48 mg/dl; LDL Cholesterol, Calculated 26 mg/dl; Potassium 4.5 mmol/L (3.5-5.1); Sodium 144 mmol/L (135-145); Total Bilirubin 0.7 mg/dl (0.2-1.3); Total Cholesterol 91 mg/dl (50-199); Total Protein 7.4 g/dl (6.3-8.2); Triglyceride 89 mg/dl (10-149); Very Low Density Lipoprotein 17 mg/dl (0-30); eGFR 47.95
== END ==
LOC: HWLAB 09:06
PROVIDERS: ATTENDING PHYSICIAN Internal Medicine
DX: M19.90 Unspecified osteoarthritis, unspecified site (principal); J30.9 Allergic rhinitis, unspecified; E78.5 Hyperlipidemia, unspecified; Z85.46 Personal history of malignant neoplasm of prostate
CPT/HCPCS: 36415; 80053; 80061; 84153; 84443; 85025

== ENCOUNTER 2024-07-19 15:13 | Emergency (ER) | payer OTHER, SELFPAY ==
[2024-07-19 15:34] VITALS: BP 130/90
--- NOTE | 2024-07-19 15:34 | ED.SKININJ ---
HPI-Injury
<Alphonso Andre PA-C - Last Filed: 07/19/24 15:35>
General
Chief Complaint: Skin Surface Trauma
Time Seen by Provider: 07/19/24 16:19
<Gita Penn NP - Last Filed: 07/19/24 17:13>
General
Source: patient
Exam Limitations: none
Nursing documentation reviewed up to this point in time: agreed with
History of Present Illness-Injury
Is this injury a work related problem?: No
Is pt an associate of [facility]?: No
Initial Injury comments:
Patient states finger was crushed while working on [employer]. Reports laceration to left palmar 3rd finger Seen at and referred to ED for eval. FUll ROM to finger. No tendon injury
ED Provider Triage
<Alphonso Andre PA-C - Last Filed: 07/19/24 15:35>
-
Patient seen by provider in Triage?: Seen in Triage
Attestation: A medical screening examination has been initiated by a qualified medical provider. Based on the assessment performed at this time, it has been determined that an emergent medical condition may exist and the patient has been informed
that further medical evaluation and possible additional diagnostic testing may be needed.
HPI: 74-year-old male with crushing injury and laceration to left middle finger he sustained today working on his vehicle. Seen initially by urgent care but sent here for further evaluation has laceration of left middle finger. X-rays pending
GENERAL: Alert , in no apparent distress
EYE: No visual abnormalities.
NECK: Trachea midline
ENT: No visible abnormalities.
LUNGS: No acute respiratory distress
NEUROLOGICAL: Alert and oriented
SKIN: Skin intact. No visible changes.
MUSCULOSKELETAL: Moving extremities normally
PSYCH: Normal and appropriate interaction.
This is a medical evaluation conducted in person to initiate diagnostic evaluation and provide initial therapeutics. Please see further documentation by the treating clinician.
Past History
<Alphonso Andre PA-C - Last Filed: 07/19/24 15:35>
Past History
ED Past Medical History: COPD and HTN
ED Past Surgical History: Orthopedic and Urological (Prostatectomy)
Social History
Tobacco: Non-smoker
Alcohol: Occasional
Personal:
Living: with family
Review of Systems
<Gita Penn NP - Last Filed: 07/19/24 17:13>
Review of Systems
Allergies reviewed?: Yes
All Other Systems: ROS reviewed and negative except as documented in HPI and ROS
Constitutional: Reports no symptoms
Musculoskeletal: Reports no symptoms
Skin: Reports other (Laceration palmar surface left 3rd finger)
Neurological: Reports no symptoms
Psychiatric: Reports no symptoms
Skin Exam
<Gita Penn NP - Last Filed: 07/19/24 17:13>
Laceration
Left Palmar Third Finger:
Length in cm: 1.5
Type of Laceration: simple
Any active bleeding?: low grade venous oozing
Distal skin color and temperature: normal-warm & good color
Normal distal neurovascular exam: Yes
Range of motion: full
Phy Exam
<Gita Penn NP - Last Filed: 07/19/24 17:13>
General Physical Exam
General Presentation: well appearing and no apparent distress
General age: appears stated age
General Skin: warm and dry
General Habitus: normal
Musculoskeletal Exam
Musculoskeletal Exam: full ROM and neuro vasc intact
Skin Exam
Skin Exam: normal color and warm/dry
Psychiatric Exam
Psychiatric Exam: normal mood/affect
Course
<Alphonso Andre PA-C - Last Filed: 07/19/24 15:35>
Orders/Labs/Results
Orders:
Orders
07/19/24 15:33
CR Hand - Left Min 3 Views Urgent
Comment:
Reason For Exam: middle finger crush injury
07/19/24 17:00
Cephalexin Monohydrate [Keflex] 500 mg PO NOW STA
Vital Signs
Initial and Last Documented VS:
Initial Vital Signs
Temp Pulse Resp BP Pulse Ox
97.4 F 82 18 130/90 97
07/19/24 15:34 07/19/24 15:34 07/19/24 15:34 07/19/24 15:34 07/19/24 15:34
Last Documented Vital Signs
Temp Pulse Resp BP Pulse Ox
97.4 F 82 18 130/90 97
07/19/24 15:34 07/19/24 15:34 07/19/24 15:34 07/19/24 15:34 07/19/24 15:34
<Gita Penn NP - Last Filed: 07/19/24 17:13>
Orders/Labs/Results
Orders:
Orders
07/19/24 15:33
CR Hand - Left Min 3 Views Urgent
Comment:
Reason For Exam: middle finger crush injury
07/19/24 17:00
Cephalexin Monohydrate [Keflex] 500 mg PO NOW STA
Vital Signs
Initial and Last Documented VS:
Initial Vital Signs
Temp Pulse Resp BP Pulse Ox
97.4 F 82 18 130/90 97
07/19/24 15:34 07/19/24 15:34 07/19/24 15:34 07/19/24 15:34 07/19/24 15:34
Last Documented Vital Signs
Temp Pulse Resp BP Pulse Ox
97.4 F 82 18 130/90 97
07/19/24 15:34 07/19/24 15:34 07/19/24 15:34 07/19/24 15:34 07/19/24 15:34
Procedures
<Gita Penn NP - Last Filed: 07/19/24 17:13>
Laceration Closure
Left Palmar Third Finger:
Status of Wound: clean
Description of Wound Edges: sharp
Preparation: cleaned with saline
Anesthesia: 1% Lidocaine and Digital-Regional
Revision/Debridement: routine- no revision
Wound exploration: explored to base- no FB and no tendon involvement
Type of Closure: single layer closure
Skin Closure Material: 5-0 prolene
<Gita Penn NP - Last Filed: 07/19/24 17:13>
*Radiology
Radiology exam reviewed: radiology read reviewed
*Pulse Oximetry
Patient hypoxic: no
*Critical Care Note
Total Time (30-74mins, 75-104mins- exclusive of procedures): Not Applicable
ED Attending Note
<Alphonso Andre PA-C - Last Filed: 07/19/24 15:35>
-
Portions of this chart may have been created with voice recognition software.� Occasional wrong word or��sound alike� substitutions may have occurred due to the inherent limitations of voice recognition software.
Discharge Plan
Departure
Patient Disposition: Home (Routine Discharge)
Date of Disposition: 07/19/24
Time of Disposition: 17:00
Patient with high blood pressure during this ER visit?: No
Condition: Good
Covid-19: Not Applicable
Discharge Problem:
Finger laceration
Instructions: Laceration Repair With Stitches (DC)
Prescriptions:
New
cephalexin 500 mg capsule
500 mg PO BID 7 Days Qty: 14 0RF
No Action
ascorbic acid (vitamin C) [Vitamin C] 1,000 MG tablet
1,000 mg PO DAILY
acetaminophen [Tylenol Extra Strength] 500 mg Tablet
1,000 mg PO DAILYPRN PRN (Reason: mild pain)
triamcinolone acetonide 0.1 % Cream
1 applic TOPICAL DAILY PRN (Reason: eczema)
fluticasone propionate 50 mcg/actuation [place],Suspension
2 spray INTRANASAL DAILY PRN (Reason: sob)
[id number]-[id number]-[id number] Tablet
1 tab PO DAILY
turmeric root extract 500 mg Capsule
500 mg PO DAILY
Allergy Relief
25 mg PO HS
atorvastatin 40 mg Tablet
40 mg PO QPM Qty: 90 2RF
clopidogrel 75 mg Tablet
75 mg PO DAILY Qty: 90 3RF
metoprolol succinate 25 mg Tablet Extended Release 24 Hr
25 mg PO DAILY Qty: 90 3RF
amlodipine 2.5 mg tablet
2.5 mg PO DAILY Qty: 90 3RF
aspirin 81 mg Tablet,Delayed Release (Dr/Ec)
81 mg PO HS Qty: 0 0RF
Referrals:
Lora Harris MD [Family Provider] - (Sutures can be removed in 7-10 days)
Interventions
Interventions:
*Risk Screen - Suicide Last Done: 07/19/24 15:34
*General Assessment Last Done: 07/19/24 17:10
*Neglect/Abuse Screening Last Done: 07/19/24 15:34
*ED COVID-19 Vaccine History Last Done: 07/19/24 17:10
ED-Skin Assessment Last Done: 07/19/24 17:10
Discharge Date and Time
Print Language: ERITREAN
[2024-07-19] MEDS: KEFLEX 500 MG PO (17:05)
[2024-07-19 17:12] VITALS: BP 130/86
== END 2024-07-19 17:13 | disposition home or self-care (01) ==
LOC: EMR 15:13
PROVIDERS: EMERGENCY PHYSICIAN Emergency Medicine; FAMILY PHYSICIAN Internal Medicine
DX: S61.213A Laceration without foreign body of left middle finger without damage to nail, initial encounter (principal); W23.0XXA Caught, crushed, jammed, or pinched between moving objects, initial encounter; J44.9 Chronic obstructive pulmonary disease, unspecified; I10 Essential (primary) hypertension; Z90.79 Acquired absence of other genital organ(s)
CPT/HCPCS: 99283; 12001; 73130

== ENCOUNTER → 2024-08-02 08:12 | Outpatient (REF) | payer OTHER, SELFPAY | LOC: HWRCS 08:12 | PROVIDERS: ATTENDING PHYSICIAN Nuclear Medicine Nuclear Cardiology; FAMILY PHYSICIAN Internal Medicine | DX: I25.119 Atherosclerotic heart disease of native coronary artery with unspecified angina pectoris (principal); R06.02 Shortness of breath; Z95.5 Presence of coronary angioplasty implant and graft; I35.1 Nonrheumatic aortic (valve) insufficiency | CPT/HCPCS: 93306 ==

== ENCOUNTER 2024-09-20 06:11 | Emergency (ER) | payer OTHER, SELFPAY ==
[2024-09-20 06:13] VITALS: BP 155/88
--- NOTE | 2024-09-20 06:34 | EDRN ---
Friday and took a shower and developed back pain R upper back. Pt feels pain under R scapula. Pt states the pain radiates down his R arm with a tingling. Pt states that he feels he is dislocated. Pt has a hx of arthritis. Pt states that he has
tried Tylenol, ASA and Aleve with no relief. Pt has not slept in 3 nights.
--- NOTE | 2024-09-20 06:54 | ED.GENMED ---
History of Present Illness
General
Chief Complaint: Back Pain
Time Seen by Provider: 09/20/24 06:16
History of Present Illness
History of Present Illness:
74-year-old with history of CAD status post stent for as well as hypertension presents to the emergency department for evaluation of sudden onset right scapular back pain 2 days ago. Pain has been gradually worsening, occasionally radiating and
causing paresthesias to the right arm. Has been unable to sleep due to pain. Denies any obvious provoking or palliating factors. No improvement despite acetaminophen and ibuprofen. Does not feel similar to past angina
Past History
Past History
ED Past Medical History: COPD and HTN
ED Past Surgical History: Orthopedic and Urological (Prostatectomy)
Social History
Tobacco: Non-smoker
Alcohol: Occasional
Personal:
Living: with family
Review of Systems
Review of Systems
Allergies reviewed?: Yes
All Other Systems: ROS reviewed and negative except as documented in HPI and ROS
Phy Exam
Physical Exam
Physical Exam:
GEN: Well appearing, NAD, WDWN
HEENT: Oral mucosa moist, no scleral icterus
Cardiac: Regular rate and rhythm, no murmurs
Lung: No respiratory distress, no tachypnea, lungs clear to auscultation bilaterally
Abdomen: Soft, grossly nontender
MSK: No gross deformity or injuries. No reproducible tenderness to the right scapular back, no palpable deformity
Skin: Good color, no pallor or jaundice, no rashes
Neuro: AO x3, moves all extremities freely
Psych: Calm, cooperative
Course
Orders/Labs/Results
Orders:
Orders
09/20/24 07:03
Electrocardiogram (*1) Urgent
Reason for Study: Chest Pain
EKG- Treatment ONCE
09/20/24 07:15
Ketorolac [Toradol] 15 mg IV NOW STA
09/20/24 07:40
Complete Blood Count/No Diff Urgent
Comprehensive Metabolic Panel Urgent
D-Dimer Urgent
Troponin I Urgent
09/20/24 08:56
CR Chest - 2 Views Urgent
Comment:
Reason For Exam: scapular back pain
09/20/24 09:44
Oxycodone [Roxicodone] 5 mg PO NOW STA
Abnormal Lab Results
09/20/24
07:40
MCH 33.1 H pg
(27.0-31.0)
Chloride 109 H mmol/L
(98-107)
Glucose 110 H mg/dl
(70-99)
09/20/24 07:40
09/20/24 07:40
Vital Signs
Initial and Last Documented VS:
Initial Vital Signs
Temp Pulse Resp BP Pulse Ox
98.2 F 78 24 155/88 97
09/20/24 06:13 09/20/24 06:13 09/20/24 06:13 09/20/24 06:13 09/20/24 06:13
Last Documented Vital Signs
Temp Pulse Resp BP Pulse Ox
98.2 F 69 13 151/74 98
09/20/24 06:13 09/20/24 08:30 09/20/24 08:30 09/20/24 08:00 09/20/24 08:30
MDM/Problems Addressed
MDM/Problems Addressed:
Seven 4-year-old male presents with acute nontraumatic right scapular pain. Pain is not reproducible thus labs were obtained to evaluate for ACS, PE, pneumothorax, pneumonia. Workup is grossly unremarkable, although radiology interpretation of
x-ray is normal, there does appear to be a faint density in the right upper lobe fissure which may represent atelectasis or a small fluid collection. Overall not clear that this is causing his pain. Will trial a course of steroids as NSAIDs have
been not beneficial and the patient has history of CKD, recommend outpatient primary care follow-up for repeat imaging
*Critical Care Note
Total Time (30-74mins, 75-104mins- exclusive of procedures): Not Applicable
ED Attending Note
-
Portions of this chart may have been created with voice recognition software.� Occasional wrong word or��sound alike� substitutions may have occurred due to the inherent limitations of voice recognition software.
Discharge Plan
Departure
Patient Disposition: Home (Routine Discharge)
Date of Disposition: 09/20/24
Time of Disposition: 09:35
Patient with high blood pressure during this ER visit?: No
Discharge Problem:
Brachial neuritis
Instructions: Radiculopathy (DC)
Prescriptions:
New
methylprednisolone [Medrol (Hans)] 4 mg tablets,dose pack
See Rx Instructions .ROUTE .COMPLEX Qty: 21 0RF
Rx Instructions:
orally per package directions
oxycodone 5 mg tablet
5 mg PO Q8H PRN (Reason: Pain) Qty: 10 0RF
No Action
ascorbic acid (vitamin C) [Vitamin C] 1,000 MG tablet
1,000 mg PO DAILY
acetaminophen [Tylenol Extra Strength] 500 mg Tablet
1,000 mg PO DAILYPRN PRN (Reason: mild pain)
triamcinolone acetonide 0.1 % Cream
1 applic TOPICAL DAILY PRN (Reason: eczema)
fluticasone propionate 50 mcg/actuation [place],Suspension
2 spray INTRANASAL DAILY PRN (Reason: sob)
[id number]-cgntcxgc-psgxoj Tablet
1 tab PO DAILY
turmeric root extract 500 mg Capsule
500 mg PO DAILY
Allergy Relief
25 mg PO HS
atorvastatin 40 mg Tablet
40 mg PO QPM Qty: 90 2RF
clopidogrel 75 mg Tablet
75 mg PO DAILY Qty: 90 3RF
metoprolol succinate 25 mg Tablet Extended Release 24 Hr
25 mg PO DAILY Qty: 90 3RF
amlodipine 2.5 mg tablet
2.5 mg PO DAILY Qty: 90 3RF
aspirin 81 mg Tablet,Delayed Release (Dr/Ec)
81 mg PO HS Qty: 0 0RF
cephalexin 500 mg capsule
500 mg PO BID 7 Days Qty: 14 0RF
Referrals:
Lora Harris MD [Family Provider] -
Activity Restrictions/Additional Instructions:
Your chest x-ray shows a small abnormality in the right upper lung which is most likely atelectasis, which is when the lung is not expanded due to lack of deep breathing. This may also represent a small bit of fluid in the lung. If your symptoms
do not improve with a course of steroids follow-up with your primary care physician for repeat chest x-ray to reassess this area
Interventions
Interventions:
*Risk Screen - Suicide Last Done: 09/20/24 06:13
*General Assessment Last Done: 09/20/24 06:22
*Neglect/Abuse Screening Last Done: 09/20/24 06:13
*ED- Fall Risk Assessment Last Done: 09/20/24 06:22
*ED COVID-19 Vaccine History Last Done: 09/20/24 06:22
ED-Musculoskeletal Assessment Last Done: 09/20/24 06:22
Discharge Date and Time
Print Language: FRISIAN
[2024-09-20] MEDS: TORADOL 15 MG IV (07:45)
[2024-09-20 07:48] LABS: Hematocrit 44.6 % (39.0-52.0); Hemoglobin 16.1 g/dL (13.0-18.0); Mean Corp Hgb Conc. 36.1 g/dL (33.0-37.0); Mean Corpuscular Hgb 33.1 pg (27.0-31.0); Mean Corpuscular Volume 91.8 fL (80.0-94.0); Mean Platelet Volume 9.3 fL (7.4-10.4); Platelet Count 226 10^3/uL (130-400); Red Blood Cell Count 4.86 10^6/uL (4.70-6.10); Red Cell Dist. Width 12.2 % (11.5-14.5); White Blood Cell Count 7.8 10^3/uL (4.8-10.8)
[2024-09-20 07:59] LABS: ALT (SGPT) 26 U/L (0-50); AST (SGOT) 26 U/L (17-59); Albumin 4.6 g/dl (3.5-5.0); Alkaline Phosphatase 94 U/L (38-126); Blood Urea Nitrogen 20 mg/dl (9-20); Calcium 9.8 mg/dl (8.4-10.2); Carbon Dioxide 24 mmol/L (22-30); Chloride 109 mmol/L (98-107); Glucose 110 mg/dl (70-99); Potassium 4.1 mmol/L (3.5-5.1); Sodium 142 mmol/L (135-145); Total Protein 7.3 g/dl (6.3-8.2); eGFR > 60.00
[2024-09-20 08:00] VITALS: BP 151/74
[2024-09-20 08:11] LABS: Troponin I < 0.012 ng/ml
[2024-09-20 08:17] LABS: D-Dimer 0.32 ug/mlFEU (0.00-0.50)
[2024-09-20 09:08] VITALS: BP 147/102
[2024-09-20] MEDS: ROXICODONE 5 MG PO (09:50)
== END 2024-09-20 10:00 | disposition home or self-care (01) ==
LOC: EMR 06:11
PROVIDERS: Physician Assistant; EMERGENCY PHYSICIAN Emergency Medicine; FAMILY PHYSICIAN Internal Medicine
DX: M54.12 Radiculopathy, cervical region (principal); I25.10 Atherosclerotic heart disease of native coronary artery without angina pectoris; I10 Essential (primary) hypertension; J44.9 Chronic obstructive pulmonary disease, unspecified; Z90.79 Acquired absence of other genital organ(s); Z95.5 Presence of coronary angioplasty implant and graft
CPT/HCPCS: 99283; 96374; 71046; 80053; 84484; 85027; 85379; 93005

== ENCOUNTER → 2024-09-22 17:56 | Outpatient (REF) | payer OTHER, SELFPAY | LOC: PAVMRI 17:56 | PROVIDERS: ATTENDING PHYSICIAN Student in an Organized Health Care Education/Training Program; FAMILY PHYSICIAN Internal Medicine | DX: M54.12 Radiculopathy, cervical region (principal) | CPT/HCPCS: 72141; 76014 ==

== ENCOUNTER → 2024-11-04 12:15 | Outpatient (REF) | payer OTHER, SELFPAY ==
[2024-11-04 16:37] LABS: % Basophils 0.1 % (0-2); % Immature Granulocytes 0.4 % (0-0.5); % Lymphocytes 7.6 % (20.5-51.1); % Monocytes 1.3 % (1.7-9.3); % Neutrophils 90.6 % (42.2-75.2); Absolute Lymphocytes 0.6 10^3/uL (1.2-3.4); Absolute Monocytes 0.1 10^3/uL (0.1-0.6); Absolute Neutrophils 7.1 10^3/uL (1.4-6.5); Hematocrit 41.4 % (39.0-52.0); Hemoglobin 14.5 g/dL (13.0-18.0); Mean Corpuscular Hgb 32.7 pg (27.0-31.0); Mean Corpuscular Volume 93.2 fL (80.0-94.0); Mean Platelet Volume 9.6 fL (7.4-10.4); Nucleated Red Blood Cells % 0 % (-); Platelet Count 259 10^3/uL (130-400); Red Blood Cell Count 4.44 10^6/uL (4.70-6.10); Red Cell Dist. Width 11.9 % (11.5-14.5); White Blood Cell Count 7.9 10^3/uL (4.8-10.8)
[2024-11-04 17:09] LABS: TSH Reflex To Free T4 0.77 uIU/ml (0.47-4.68)
[2024-11-07 08:53] LABS: ANA, IgG Reflex to HEp-2 None Detected (None Detected)
== END ==
LOC: HWLAB 12:15
PROVIDERS: ATTENDING PHYSICIAN Physician Assistant Surgical; FAMILY PHYSICIAN Internal Medicine
DX: L80 Vitiligo (principal)
CPT/HCPCS: 36415; 84443; 85025; 86038

== ENCOUNTER → 2024-12-06 08:51 | Outpatient (REF) | payer OTHER, SELFPAY ==
[2024-12-06 12:34] LABS: % Basophils 0.2 % (0-2); % Eosinophils 3.6 % (0-6); % Immature Granulocytes 0.5 % (0-0.5); % Lymphocytes 21.6 % (20.5-51.1); % Monocytes 10.3 % (1.7-9.3); % Neutrophils 63.8 % (42.2-75.2); Absolute Eosinophils 0.2 10^3/uL (0-0.7); Absolute Lymphocytes 1.4 10^3/uL (1.2-3.4); Absolute Monocytes 0.7 10^3/uL (0.1-0.6); Absolute Neutrophils 4.1 10^3/uL (1.4-6.5); Hematocrit 39.2 % (39.0-52.0); Hemoglobin 13.7 g/dL (13.0-18.0); Mean Corp Hgb Conc. 34.9 g/dL (33.0-37.0); Mean Corpuscular Hgb 33.3 pg (27.0-31.0); Mean Corpuscular Volume 95.4 fL (80.0-94.0); Mean Platelet Volume 9.4 fL (7.4-10.4); Nucleated Red Blood Cells % 0 % (-); Platelet Count 215 10^3/uL (130-400); Red Blood Cell Count 4.11 10^6/uL (4.70-6.10); Red Cell Dist. Width 12.8 % (11.5-14.5); White Blood Cell Count 6.4 10^3/uL (4.8-10.8)
== END ==
LOC: HWLAB 08:51
PROVIDERS: ATTENDING PHYSICIAN Internal Medicine
DX: R79.89 Other specified abnormal findings of blood chemistry (principal)
CPT/HCPCS: 36415; 85025

== ENCOUNTER → 2025-04-01 07:18 | Outpatient (REF) | payer OTHER, SELFPAY ==
[2025-04-01 10:31] LABS: ALT (SGPT) 74 U/L (0-50); AST (SGOT) 57 U/L (17-59); Albumin 4.8 g/dl (3.5-5.0); Alkaline Phosphatase 187 U/L (38-126); Blood Urea Nitrogen 23 mg/dl (9-20); Calcium 9.9 mg/dl (8.4-10.2); Carbon Dioxide 23 mmol/L (22-30); Chloride 108 mmol/L (98-107); Glucose 101 mg/dl (70-99); HDL Cholesterol 55 mg/dl; LDL Cholesterol, Calculated 37 mg/dl; Potassium 4.4 mmol/L (3.5-5.1); Sodium 141 mmol/L (135-145); Total Protein 7.9 g/dl (6.3-8.2); Very Low Density Lipoprotein 15 mg/dl (0-30); eGFR 52.09
[2025-04-01 10:50] LABS: Glycohemoglobin (HgbA1c) 5.4 % (4.0-5.6)
[2025-04-01 11:01] LABS: PSA, Total - Diagnostic < 0.06 ng/ml (0.0-4.0)
== END ==
LOC: HWLAB 07:18
PROVIDERS: ATTENDING PHYSICIAN Internal Medicine
DX: E78.5 Hyperlipidemia, unspecified (principal); R73.01 Impaired fasting glucose; Z85.46 Personal history of malignant neoplasm of prostate
CPT/HCPCS: 36415; 80053; 80061; 83036; 84153

== ENCOUNTER → 2025-04-29 07:25 | Outpatient (REF) | payer OTHER, SELFPAY | LOC: HWRAD 07:25 | PROVIDERS: ATTENDING PHYSICIAN Internal Medicine | DX: R74.01 Elevation of levels of liver transaminase levels (principal); R74.8 Abnormal levels of other serum enzymes | CPT/HCPCS: 76700 ==

== ENCOUNTER → 2025-05-09 07:17 | Outpatient (REF) | payer OTHER, SELFPAY ==
[2025-05-09 09:03] LABS: ALT (SGPT) 76 U/L (0-50); Alkaline Phosphatase 235 U/L (38-126)
[2025-05-09 19:04] LABS: Hepatitis B Surface Antigen Negative (Negative)
[2025-05-09 19:21] LABS: Hepatitis C Antibody Negative (Negative)
[2025-05-10 09:41] LABS: Alk Phos Bone Specific Results 19.7 ug/L (6.5-20.1)
== END ==
LOC: REG 07:17
PROVIDERS: ATTENDING PHYSICIAN Internal Medicine
DX: R74.01 Elevation of levels of liver transaminase levels (principal); R74.8 Abnormal levels of other serum enzymes
CPT/HCPCS: 36415; 84075; 84460; 86803; 87340